=== PATIENT | male | born 1985 | race African-American/Black ===

== ENCOUNTER 2019-05-08 10:25 | Emergency (ER) | payer MEDICAID ==
[~2019-05-08] VITALS: Ht 182.9 cm; Wt 99.8 kg
[2019-05-08 11:24] VITALS: BP 121/102
[2019-05-08] MEDS ORDERED: LIDOCAINE 2% (LOCAL ANESTH.) PF 5ml SDV ONE (12:29)
[2019-05-08] MEDS ORDERED: TETANUS-DIPTH-ACEL PERTUSSIS 0.5ML SYRG IM ONE (12:30)
[2019-05-08] MEDS ORDERED: cefTRIAXone SOD 1,000 MG VL IM ONE (12:30)
== END 2019-05-08 12:54 | disposition home or self-care (01) ==
LOC: ER 10:25
DX: S92.421A Displaced fracture of distal phalanx of right great toe, initial encounter for closed fracture (principal); W20.8XXA Other cause of strike by thrown, projected or falling object, initial encounter; Y93.89 Activity, other specified; Y92.89 Other specified places as the place of occurrence of the external cause; Y99.8 Other external cause status
CPT/HCPCS: 73630; 90471; 90715; 96372; 99283; J0696; J2001; L3260